=== PATIENT | female | born 1990 | race Caucasian/White ===

== ENCOUNTER 2023-12-13 18:14 | Emergency (ER) | payer MEDICAID ==
[~2023-12-13] VITALS: Ht 172.7 cm; Wt 65.9 kg
[2023-12-13 19:13] LABS: BASOPHILS # (AUTO) 0.1 X10'3 (0-0.2); BASOPHILS % (AUTO) 0.7 % (0-1); EOSINOPHILS # (AUTO) 0.1 X10'3 (0-0.9); EOSINOPHILS % (AUTO) 0.8 % (0-6); HEMATOCRIT 38.3 % (35.0-45.0); HEMOGLOBIN 12.9 g/dl (12.0-16.0); LYMPHOCYTES # (AUTO) 2.6 X10'3 (1.1-4.8); LYMPHOCYTES % (AUTO) 20.9 % (21-51); MEAN CORPUSCULAR HEMOGLOBIN 30.6 PG (27.0-31.0); MEAN CORPUSCULAR HGB CONC 33.7 g/dL (33.0-36.5); MEAN CORPUSCULAR VOLUME 90.8 FL (78-98); MEAN PLATELET VOLUME 8.3 FL (7.4-10.4); MONOCYTES # (AUTO) 0.7 X10'3 (0-0.9); MONOCYTES % (AUTO) 5.6 % (2-12); NEUTROPHILS # (AUTO) 9.1 X10'3 (1.8-7.7); PLATELET COUNT 232 X10'3 (140-440); RED BLOOD COUNT 4.22 X10'6 (4.20-5.60); RED CELL DISTRIBUTION WIDTH 13.4 % (11.5-14.5); WHITE BLOOD COUNT 12.7 X10'3 (4.5-11.0)
[2023-12-13 19:32] LABS: ALANINE AMINOTRANSFERASE 23 U/L (12-78); ALBUMIN 4.1 G/DL (3.4-5.0); ALBUMIN/GLOBULIN RATIO 1.1 (1.1-1.5); ALKALINE PHOSPHATASE 87 IU/L (46-116); ANION GAP 8 (8-16); ASPARTATE AMINO TRANSFERASE 14 U/L (10-37); BILIRUBIN,TOTAL 0.3 MG/DL (0.1-1.0); BLOOD UREA NITROGEN 18 MG/DL (7-18); BUN/CREATININE RATIO 18.8 (10.0-20.0); CALCIUM 9.2 MG/DL (8.5-10.1); CHLORIDE 103 MMOL/L (99-107); CREATININE 0.96 MG/DL (0.40-0.90); GLUCOSE 108 MG/DL (70-104); LIPASE 34 U/L (16-77); POTASSIUM 3.8 MMOL/L (3.5-5.1); SODIUM 139 MMOL/L (135-145); TOTAL CARBON DIOXIDE 27.6 MMOL/L (24-32); TOTAL PROTEIN 7.7 G/DL (6.4-8.2); eCRCL 86 ML/MIN; eGFR 68 ML/MIN
[2023-12-13 19:38] LABS: HCG SERUM QL NEGATIVE
[2023-12-13] MEDS: morphine 4 MG/ML inj SYRINge IV STA ×2 (19:38→21:00)
[2023-12-13] MEDS: ondansetron/PF 4mg/2ml inj IV STA (19:38)
[2023-12-13] MEDS: ketorolac trometh 15mg/ml vial 15 MG/ML ML IV STA (20:08)
[2023-12-13] MEDS: normal saline 1000ml 1,000 ML IV STA (20:08)
[2023-12-13 20:46] VITALS: TEMP 98.6
[2023-12-13 21:25] LABS: BILIRUBIN,URINE NEGATIVE (Neg); COLOR,URINE YELLOW (Yellow); GLUCOSE, URINE NEGATIVE (Neg); KETONES,URINE NEGATIVE (Neg); LEUKOCYTE ESTERASE ,URINE NEGATIVE (Neg); NITRITES, URINE NEGATIVE (Neg); OCCULT BLOOD,URINE MODERATE (Neg); PROTEIN,URINE NEGATIVE (Neg); UROBILINOGEN,URINE 0.2 E.U/dL (0.2-1.0)
[2023-12-13 21:33] LABS: UA COLLECTION TYPE CLN CATCH MIDSTREAM
[2023-12-13 21:35] LABS: BACTERIA,URINE FEW /HPF (Neg); CLARITY,URINE SLIGHTLY CLOUDY (Clear); RBC,URINE 50-100 /HPF (0-2); SQUAMOUS EPITHELIAL CELL,UR FEW /LPF (FEW); TRANSITIONAL EPI CELLS,URINE FEW /HPF; WBC,URINE 0-4 /HPF (0-4)
[2023-12-13 21:36] LABS: RENAL CELLS, URINE FEW /HPF
[2023-12-13 22:30] VITALS: BP 118/78; PULSE 71; RESP 19; O2SAT 99
[2023-12-13] MEDS: acetaminophen 325mg tablet PO STA (22:33)
== END 2023-12-13 22:35 | disposition home or self-care (01) ==
LOC: ER 18:14
DX: N20.0 Calculus of kidney (principal); Z56.0 Unemployment, unspecified
CPT/HCPCS: 36415; 74176; 80053; 81001; 83605; 83690; 84703; 85025; 96361; 96374; 96375; 96376; 99285; J1885; J2270; J2405; J7030